=== PATIENT | female | born 1995 | race African-American/Black ===

== ENCOUNTER 2021-04-10 10:20 | Emergency (ER) | payer SELFPAY ==
[~2021-04-10] VITALS: Ht 167.6 cm; Wt 82.0 kg
[2021-04-10] MEDS ORDERED: SULFAMETHOXAZOLE/TRIMETHOPRIM 800/160MG TABLET PO ONE (10:30)
[2021-04-10] MEDS ORDERED: BACITRACIN ZINC OINT UDPKT TOP ONE (10:30)
[2021-04-10] MEDS ORDERED: ACETAMINOPHEN 325MG TABLET PO ONE (10:45)
[2021-04-10] MEDS ORDERED: IBUPROFEN 600MG TABLET PO ONE (10:45)
[2021-04-10] MEDS ORDERED: LIDOCAINE HCL/EPINEPHRINE 1%-EPI 1:100,000 20 ML VIAL INFIL ONE (12:15)
[2021-04-10] MEDS ORDERED: SULF1TAB48 MT (12:41)
[2021-04-10] MEDS ORDERED: IBUP-2028 MT (12:41)
[2021-04-10] MEDS ORDERED: ACET-2708 MT (12:41)
[2021-04-10 12:57] VITALS: BP 118/76
== END 2021-04-10 12:58 | disposition left against medical advice (07) ==
LOC: ER 10:20
DX: L02.413 Cutaneous abscess of right upper limb (principal); Z53.29 Procedure and treatment not carried out because of patient's decision for other reasons
CPT/HCPCS: 81025; 99284; J3490; Z7610